=== PATIENT | female | born 1975 | race Caucasian/White ===

== ENCOUNTER 2019-06-23 18:00 | Emergency (ER) | payer MEDICAID ==
[~2019-06-23] VITALS: Ht 170.2 cm; Wt 59.0 kg
[2019-06-23] MEDS ORDERED: LORAZEPAM 0.5 MG TABLET PO ONE (19:15)
[2019-06-23] MEDS ORDERED: LIDOCAINE HCL 2% 20 ML VIAL TP ONE (19:15)
[2019-06-23] MEDS ORDERED: LET TOPICAL SOLUTION 8 ML UDC TP ONE (19:15)
[2019-06-23] MEDS ORDERED: SODIUM BICARBONATE 4.2 % (NEUT) 5 ML VIAL TP ONE (19:15)
[2019-06-23] MEDS ORDERED: LET TOPICAL SOLUTION 8 ML UDC ONE (19:17)
[2019-06-23] MEDS ORDERED: LORAZEPAM 1 MG TABLET ONE (19:21)
--- NOTE | 2019-06-23 19:33 | NUR ---
Received patient in bed. patient refusing blood work and other treatment besides x-ray. Dr. Yanez has seen patient at bedside.
[2019-06-23] MEDS ORDERED: NEOMY/BACITRA/POLYMYXIN B OINT UD PACKET TP ONE ×3 (20:02→21:46)
[2019-06-23] MEDS ORDERED: ONDANSETRON 4 MG/2 ML VIAL IV ONE (20:15)
[2019-06-23] MEDS ORDERED: CEFTRIAXONE 1 G in IV DEXTROSE 5% 50 ML IV ONE (20:15)
[2019-06-23] MEDS ORDERED: MORPHINE SULFATE 4 MG/1 ML DISP.SYRIN IV ONE (20:15)
--- NOTE | 2019-06-23 20:30 | NUR ---
patient refused IV insertion and all medications.
--- NOTE | 2019-06-23 21:19 | NUR ---
Dr. Fishman on the line with ERMD discussing patient case.
--- NOTE | 2019-06-23 21:35 | NUR ---
Call placed to [facility], Dr. Santos (HAND SURGERY) will be notified.
[2019-06-23] MEDS ORDERED: CEphaleXIN 250 MG CAPSULE ONE (21:42)
[2019-06-23] MEDS ORDERED: SULFAMETH/TRIMETH 800/160 MG TABLET ONE (21:42)
[2019-06-23] MEDS ORDERED: CEphaleXIN 250 MG CAPSULE PO ONE (21:45)
[2019-06-23] MEDS ORDERED: SULFAMETH/TRIMETH 800/160 MG TABLET PO ONE (21:45)
--- NOTE | 2019-06-23 22:07 | NUR ---
2nd call to Co[facility] Cisneros, no response at this time.
--- NOTE | 2019-06-23 22:56 | NUR ---
Patient discharged to home in stable conditon. Written and verbal after care instructions given. Patient verbalizes understanding of instructions. patient alert and oriented x4. patient self ambulatory but was wheel chair to vehicle. Patient stated and consent that he will be driving the patient home. Exit care package and personal belongings taken with patient. patient in stable condition and denies any pain or discomfort. patient stated and verbalizes understanding of plan of care discussed with ER MD.
[2019-06-23 23:02] VITALS: BP 118/80
== END 2019-06-23 23:00 | disposition home or self-care (01) ==
LOC: ER 18:05
DX: S60.450A Superficial foreign body of right index finger, initial encounter (principal); W45.8XXA Other foreign body or object entering through skin, initial encounter; Y93.89 Activity, other specified; Y92.89 Other specified places as the place of occurrence of the external cause; Y99.8 Other external cause status
CPT/HCPCS: 64450; 73140 ×2; 93005; 99284; J3490; A4217; A4663

== ENCOUNTER 2020-01-11 05:20 | Emergency (ER) | payer MEDICAID, OTHER ==
[~2020-01-11] VITALS: Ht 170.2 cm; Wt 60.3 kg
--- NOTE | 2020-01-11 05:41 | NUR ---
Dr. Otto at bedside for MSE
[2020-01-11] MEDS ORDERED: IBUPROFEN 800 MG TABLET PO ONE (05:45)
[2020-01-11] MEDS ORDERED: CLINDAMYCIN HCL 300 MG CAPSULE PO SCH (05:45)
[2020-01-11] MEDS ORDERED: CLINDAMYCIN HCL 300 MG CAPSULE ONE (05:54)
[2020-01-11] MEDS ORDERED: IBUPROFEN 800 MG TABLET ONE (05:54)
--- NOTE | 2020-01-11 06:00 | NUR ---
Patient discharged to home in stable condition. Written and verbal after care instructions given. Patient verbalizes understanding of instructions. Stressed follow up or return to ER for worsening s/s. Patient ambulatory with steady gait. No s/s of distress.
[2020-01-11 06:04] VITALS: BP 126/91
== END 2020-01-11 06:00 | disposition home or self-care (01) ==
LOC: ER 05:25
DX: K04.7 Periapical abscess without sinus (principal); K05.10 Chronic gingivitis, plaque induced; Z72.0 Tobacco use
CPT/HCPCS: A4663

== ENCOUNTER 2020-04-21 08:50 | Emergency (ER) | payer OTHER ==
[~2020-04-21] VITALS: Ht 170.2 cm; Wt 59.9 kg
--- NOTE | 2020-04-21 09:26 | NUR ---
PT WAS D/Cd TO HOME. D/C INSTRUCTIONS GIVEN TO THE PT BY DR COCHRAN.
[2020-04-21 09:27] VITALS: BP 125/69
== END 2020-04-21 09:28 | disposition home or self-care (01) ==
LOC: ER 08:50
DX: K08.9 Disorder of teeth and supporting structures, unspecified (principal)
CPT/HCPCS: A4663